=== PATIENT | female | born 1980 | race Caucasian/White ===

== ENCOUNTER 2018-12-04 12:33 | Emergency (ER) | payer MEDICAID ==
[~2018-12-04] VITALS: Ht 154.9 cm; Wt 61.6 kg
[2018-12-04 12:41] VITALS: BP 128/71; PULSE 94; RESP 20; Ht 154.9 cm; Wt 61.6 kg
[2018-12-04] MEDS ORDERED: IBUPROFEN 600 MG TAB PO ONE (15:00)
--- NOTE | 2018-12-04 16:16 | ERD ---
ER Documentation Chief Complaint Chief Complaint RT lower quad pain x1day with N/V HPI This is a 38-year-old female patient who presents to the emergency room with complaint of right-sided flank pain that radiates to right lower quadrant starting yesterday. Denies dysuria denies hematuria denies diarrhea. States she has nausea and headache and left ear pain. States LMP was 3 weeks ago lasted for 1 day then 7 days later she began bleeding and has been bleeding ever since. She says this is an abnormally long and heavy period for her. States she was "sterilized" 6 years ago. Denies history of kidney stone or any other abdominal abnormalities. section x2. Patient hesitant to move due to pain in right lower quadrant. ROS All systems reviewed and are negative except as per history of present illness. Medications Home Meds Active Scripts Hydroxyzine Pamoate* (Vistaril*) 25 Mg Capsule, 25 MG PO Q6H PRN for ANXIETY for 10 Days, #15 CAP Prov:TACOS ALFARO NP 12/04/18 Acetaminophen* (Tylophen*) 500 Mg Capsule, 2 CAP PO Q8H PRN for PAIN AND OR ELEVATED TEMP for 7 Days, #30 CAP Prov:TACOS ALFARO NP 12/04/18 Ciprofloxacin Hcl/Dexameth (Ciprodex Otic Suspension) 7.5 Ml Drops.susp, 2 DROP LEFT EAR BID for 7 Days, EA Prov:TACOS ALFARO NP 12/04/18 Allergies Allergies: Coded Allergies: No Known Allergy (Unverified , 12/04/18) PMhx/Soc Medical and Surgical Hx: pt denies Medical Hx, pt denies Surgical Hx Hx Alcohol Use: No Hx Substance Use: No Hx Tobacco Use: No Smoking Status: Never smoker FmHx Family History: No diabetes, No coronary disease, No other Physical Exam Vitals Vital Signs Date Temp Pulse Resp B/P (MAP) Pulse Ox O2 O2 Flow FiO2 Time Delivery Rate 12/04/18 98.8 94 20 128/71 100 12:41 (90) Physical Exam GENERAL APPEARANCE: Well developed, well nourished, alert and cooperative, and appears to be in no acute distress. HEAD: normocephalic. EYES: PERRL, EOMI. Vision is grossly intact. EARS: Right TM mildly opaque with some sclerosis, Left TM covered with thin white opaque film, hearing grossly intact. NOSE: No nasal discharge. THROAT: Oral cavity and pharynx normal. No inflammation, swelling, exudate, or lesions. Teeth and gingiva in good general condition. NECK: Neck supple, non-tender without lymphadenopathy, masses or thyromegaly. CARDIAC: Normal S1 and S2. No S3, S4 or murmurs. Rhythm is regular. There is no peripheral edema, cyanosis or pallor. Extremities are warm and well perfused. Capillary refill is less than 2 seconds. No carotid bruits. LUNGS: Clear to auscultation and percussion without rales, rhonchi, wheezing or diminished breath sounds. ABDOMEN: Positive bowel sounds. Soft, non-distended, ++tenderness RLQ with guarding, neg Bai's. MUSCULOSKELETAL: Adequately aligned spine. ROM intact spine and extremities. No joint erythema or tenderness. Normal muscular development. Normal gait. BACK: Examination of the spine reveals normal gait and posture, no spinal deformity, symmetry of spinal muscles, without tenderness, decreased range of motion or muscular spasm. EXTREMITIES: No significant deformity or joint abnormality. No edema. Peripheral pulses intact. No varicosities. NEUROLOGICAL: CN II-XII intact. Strength and sensation symmetric and intact throughout. SKIN: Skin normal color, texture and turgor with no lesions or eruptions PSYCHIATRIC: The mental examination revealed the patient was oriented to person, place, and time. The patient was able to demonstrate good judgment and reason, without hallucinations, abnormal affect or abnormal behaviors during the examination. Patient is not suicidal. Result Diagram: 12/04/18 1515 12/04/18 1515 Results 24 hrs Laboratory Tests Test 12/04/18 15:13 12/04/18 15:14 12/04/18 15:15 Bedside Urine pH (LAB) 5.5 Bedside Urine Protein (LAB) Negative Bedside Urine Glucose (UA) Negative Bedside Urine Ketones (LAB) Negative Bedside Urine Blood 1+ Bedside Urine Nitrite (LAB) Negative Bedside Urine Leukocyte Esterase Negative (L POC Beta HCG, Qualitative NEGATIVE White Blood Count 7.6 10^3/ul Red Blood Count 4.64 10^6/ul Hemoglobin 13.9 g/dl Hematocrit 41.4 % Mean Corpuscular Volume 89.2 fl Mean Corpuscular Hemoglobin 30.0 pg Mean Corpuscular 33.6 g/dl Hemoglobin Concent Red Cell Distribution Width 13.2 % Platelet Count 303 10^3/UL Mean Platelet Volume 10.3 fl Immature Granulocytes % 0.400 % Neutrophils % 57.0 % Lymphocytes % 31.8 % Monocytes % 7.2 % Eosinophils % 2.5 % Basophils % 1.1 % Nucleated Red Blood Cells % 0.0 /100WBC Immature Granulocytes # 0.030 10^3/ul Neutrophils # 4.3 10^3/ul Lymphocytes # 2.4 10^3/ul Monocytes # 0.6 10^3/ul Eosinophils # 0.2 10^3/ul Basophils # 0.1 10^3/ul Nucleated Red Blood Cells # 0.0 10^3/ul Sodium Level 145 mmol/L Potassium Level 4.5 mmol/L Chloride Level 106 mmol/L Carbon Dioxide Level 27 mmol/L Anion Gap 12 Blood Urea Nitrogen 9 mg/dl Creatinine 0.48 mg/dl Est Glomerular Filtrat Rate mL/min > 60 mL/min Glucose Level 100 mg/dl Calcium Level 10.1 mg/dl Total Bilirubin 0.6 mg/dl Direct Bilirubin 0.00 mg/dl Indirect Bilirubin 0.6 mg/dl Aspartate Amino Transf (AST/SGOT) 23 IU/L Alanine 22 IU/L Aminotransferase (ALT/SGPT) Alkaline Phosphatase 69 IU/L Total Protein 8.7 g/dl Albumin 4.8 g/dl Globulin 3.90 g/dl Albumin/Globulin Ratio 1.23 Lipase 83 U/L Current Medications Medications Dose Sig/Annalee Start Time Status Last (Trade) Ordered Route PRN Stop Time Admin Dose Reason Admin Ibuprofen 600 mg ONCE ONCE 12/04/18 DC 12/04/18 (Motrin) PO 15:00 15:09 12/04/18 15:01 PROCEDURE: CT Abdomen and Pelvis without contrast. CLINICAL INDICATION: Abdominal pain TECHNIQUE: CT scan of the abdomen and pelvis without IV contrast was performed on a multi-detector high-resolution CT scanner. Oral contrast was not administered. Coronal and sagittal reformatted images were obtained from the axial source images. DICOM images are available. CTDI equals 6.12 mGy, and DLP equals 345.24 mGy-cm. One or more of the following dose reduction techniques were used: - Automated exposure control. - Adjustment of the mA and/or kV according to patient size. - Use of iterative reconstruction technique. COMPARISON: None. FINDINGS: In the absence of intravenous contrast, the study constitutes a limited assessment of the solid organs, bowel and vessels. Lower thorax: Normal. Liver: Normal. Bile Ducts: No biliary dilatation. Gallbladder: Normal Pancreas: Normal. Spleen: Normal. Adrenal Glands: Calcification in the right adrenal gland without discrete nodule, nonspecific may reflect sequelae of prior infection/inflammation or hemorrhage. Kidneys/Ureters: Normal. Bladder: Normal. Reproductive organs: Normal. Gastrointestinal Tract: No dilated loops of bowel to suggest obstruction. No evidence of appendicitis. Peritoneum/Retroperitoneum: Small amount of pelvic free fluid may be physiologic. Lymph nodes: Shoddy retroperitoneal and at this lymph nodes, nonspecific. Vessels: Normal. Musculoskeletal: Mild degenerative changes of the visualized spine. IMPRESSION: 1. No acute findings in the abdomen/pelvis. 2. Additional findings as above. RPTAT: PP Physician Moni Date Time Electronically viewed and signed by Physician Moni on 12/04/2018 16:10 PROCEDURE: US Pelvis. CLINICAL INDICATION: pelvic pain TECHNIQUE: Multiple sonographic images of the pelvis were obtained utilizing transabdominal technique. The images were reviewed on a PACS workstation. COMPARISON: None. FINDINGS: The uterus is normal in size with a normal appearance of the myometrium. The uterus measures 9.0 x 3.9 x 5.2 cm. The endometrial stripe is homogeneous in appearance and has the thickness of 5 mm. The ovaries are normal in size and echogenicity. Normal Doppler flow is identified in both ovaries. The right ovary measures 3.3 x 1.9 x 2.8 cm. There is a 1.8 cm complex cyst in the right ovary. The left ovary measures 3.0 x 1.9 x 2.6 cm. No free fluid is present within the pelvis. RPTAT: AA IMPRESSION: 1.8 cm complex cyst with internal debris in the right ovary. .Yariel Camejo MD, Date Time Electronically viewed and signed by .Yariel Camejo MD, MD on 12/04/2018 16:14 Procedures/MDM This is a 38-year-old female patient who presents to the emergency room with complaint of right-sided flank pain that radiates to right lower quadrant starting yesterday. This patient was assessed for abdominal pain including kidney stones, pyelonephritis, appendicitis, ovarian torsion, , UTI. Patient's diagnostic results showed no abnormalities. Upon discussion of exam and laboratory results patient began to tell provider how she has been under a lot of stress lately and her somatic symptoms may be related to her stress. Instructed patient on following up with PMD who can help to mange her symptoms and refer her to psych services. Patient requesting medication for insomnia and anxiety. Discussed use of Vistaril and precautions. Patient verbalized understanding of instructions and need for follow-up with PMD, pt provided with all lab and radiology results. Pt verbalized appreciation for care. Results and instructions provided with science interpreter services. The patient presents with abdominal pain without definite explanation found on evaluation today. However, there are no signs of peritonitis or other life- threatening or serious etiology. The patient appears stable for discharge and has been instructed to return immediately if the symptoms worsen in any way, or in 8-12 hours if not improved for re-evaluation. The patient has been instructed to return if the symptoms worsen or change in any way. Departure Condition: Stable Patient Instructions: Otitis Externa (Child) Referrals: [facility] Additional Instructions: See discharge instructions TACOS ALFARO NP Dec 04, 2018 16:16
[2018-12-04] MEDS ORDERED: CIPR7.5D LEFT EAR (16:37)
[2018-12-04] MEDS ORDERED: ACET500C5 PO (16:38)
[2018-12-04] MEDS ORDERED: HYDR25CA PO (16:47)
== END 2018-12-04 16:48 | disposition home or self-care (01) ==
LOC: FTE 12:33
DX: N83.201 Unspecified ovarian cyst, right side (principal); R10.2 Pelvic and perineal pain
CPT/HCPCS: 36415; 74176; 76856; 80053; 81003; 81025; 83690; 85025; Z7502; Z7610